=== PATIENT | male | born 1975 | race Caucasian/White ===

== ENCOUNTER → 2024-06-08 07:04 | Outpatient (CLI) | payer OTHER, SELFPAY ==
[2024-06-08 08:37] LABS: Hemoglobin A1C% w Est Avg Glu 5.4 % (4.0-6.0)
[2024-06-08 08:51] LABS: Cholesterol 184 mg/dL (140-199); HDL Cholesterol 65 mg/dL (40-60); LDL Cholesterol Calculated 97 mg/dL (<100); Triglycerides 110 mg/dL (35-150)
== END ==
PROVIDERS: Family Provider Family Medicine; PCP Family Medicine; Referring Provider Family Medicine; Visit Provider Family Medicine
DX: Z13.1 Encounter for screening for diabetes mellitus (principal); Z13.220 Encounter for screening for lipoid disorders
CPT/HCPCS: 36415; 80061; 83036

== ENCOUNTER 2024-09-11 09:00 | Outpatient (RCR) | payer OTHER, SELFPAY ==
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
== END 2024-10-24 10:58 | disposition home or self-care (01) ==
LOC: PHYS 09:00
PROVIDERS: Family Provider Family Medicine; PCP Family Medicine; Referring Provider Family Medicine; Visit Provider Family Medicine
DX: M54.50 Low back pain, unspecified (principal)
CPT/HCPCS: 97110; 97140; 97162; 97535